=== PATIENT | female | born 1975 | race Caucasian/White ===

== ENCOUNTER 2018-12-12 09:01 | Emergency (ER) | payer BC ==
[2018-12-12 09:16] VITALS: BP 107/66
--- NOTE | 2018-12-12 09:36 | UC ---
UC General HPI - HPI Summary HPI Summary: c/o right sided sinus pressure/dental and radiates R ear / pain x 2-3 days. She went to the dentist a few days ago and they said from a dental standpoint everything looked ok. hx sinus congestion which is chronic but worse the past few days. txing with saline flushes which helps in past but not working now. - History of Current Complaint Chief Complaint: UCGeneralIllness Stated Complaint: SINUSES Time Seen by Provider: 12/12/18 09:27 Hx Obtained From: Patient Hx Last Menstrual Period: unknown, ablation Onset/Duration: Gradual Onset Timing: Constant Pain Intensity: 7 Associated Signs & Symptoms: Negative: Fever, Headache - Allergy/Home Medications Allergies/Adverse Reactions: Allergies Allergy/AdvReac Type Severity Reaction Status Date / Time No Known Allergies Allergy Verified 12/12/18 09:13 PMH/Surg Hx/FS Hx/Imm Hx - Additional Past Medical History Additional PMH: chronic sinus congestion - Surgical History Surgical History: Yes Surgery Procedure, Year, and Place: ablation. hernia. laperoscopy. ectopic - Family History Known Family History: Positive: Non-Contributory - Social History Alcohol Use: Occasionally Substance Use Type: None Smoking Status (MU): Never Smoked Tobacco - Immunization History Vaccination Up to Date: Yes Review of Systems All Other Systems Reviewed And Are Negative: Yes Constitutional: Positive: Negative Skin: Positive: Negative Eyes: Positive: Negative ENT: Positive: Dental Pain - area below R sinus, Ear Ache - R, Nasal Discharge - R, Sinus Congestion - R, Sinus Pain/Tenderness - R Respiratory: Positive: Negative Cardiovascular: Positive: Negative Gastrointestinal: Positive: Negative Genitourinary: Positive: Negative Motor: Positive: Negative Neurovascular: Positive: Negative Musculoskeletal: Positive: Negative Neurological: Positive: Negative Psychological: Positive: Negative Physical Exam Triage Information Reviewed: Yes Appearance: Well-Appearing Vital Signs: Initial Vital Signs Temp 98.5 F 12/12/18 09:12 Pulse 62 12/12/18 09:12 Resp 14 12/12/18 09:12 BP 107/66 12/12/18 09:12 Pulse Ox 100 12/12/18 09:12 Vital Signs Reviewed: Yes Eyes: Positive: Conjunctiva Clear ENT: Positive: Pharynx normal, Nasal congestion, TMs normal, Sinus tenderness - R maxillary, Other - Slight septal deviation R. No TMJ pain. Negative: Nasal drainage Dental: Negative: Percussion Tenderness @, Gross Decay/Caries @, Dental Fracture @, Abscess @, Cellulitis @ Neck: Positive: Supple, Nontender, No Lymphadenopathy Respiratory: Positive: Lungs clear, Normal breath sounds Cardiovascular: Positive: RRR, No Murmur Abdomen Description: Positive: Nontender, No Organomegaly, Soft Bowel Sounds: Positive: Present Musculoskeletal: Positive: ROM Intact Neurological: Positive: Alert Psychological: Positive: Age Appropriate Behavior Skin Exam: Normal Course/Dx - Course Course Of Treatment: no concern for OM, dnetal pathology or abscess. c/w sinusitis. Pt's family uses DR Tierney but her MANAGED [employer] SAL[employer] CONSULTANT suggested Dr White thus she would like a referal to both so that she can make a choice of one. pt request Diflucan for antibiotic associated yeast infections. - Diagnoses Provider Diagnosis: Sinusitis Discharge - Sign-Out/Discharge Documenting (check all that apply): Patient Departure All imaging exams completed and their final reports reviewed: No Studies - Discharge Plan Condition: Stable Disposition: HOME Prescriptions: Amoxicillin/Clavulanate TAB* [Augmentin TAB 875*] 875 mg PO BID 10 Days #20 tab Fluconazole 150 MG TAB* [Diflucan 150 MG TAB*] 150 mg PO ONCE #1 tablet Patient Education Materials: Sinusitis (ED) Referrals: Eze Tierney MD [Medical Doctor] - 7 Days Additional Instructions: FOLLOW UP WITH DR TIERNEY(ENT) OR DR WHITE(ENT) IN 7 DAYS FOR A RECHECK OR SOONER IF WORSE. CONTINUE NASAL SALINE FLUSHES FOLLOWED BY FLONASE OVER THE COUNTER PER LABEL. - Billing Disposition and Condition Condition: STABLE Disposition: Home - Attestation Statements Provider Attestation: I was available for consult. This patient was seen by the REA. The patient was not presented to, seen by, or examined by me. EK
== END 2018-12-12 10:01 | disposition home or self-care (01) ==
LOC: UCCORT 09:01
DX: J32.9 Chronic sinusitis, unspecified (principal)
CPT/HCPCS: 99202; G0463